=== PATIENT | male | born 1945 | race Caucasian/White ===

== ENCOUNTER → 2023-10-11 08:24 | Outpatient (REF) | payer MEDICARE, BC, SELFPAY | LOC: MRI 3T 08:24 | PROVIDERS: ATTENDING PHYSICIAN Psychiatry & Neurology Neurology; FAMILY PHYSICIAN Internal Medicine | DX: M54.12 Radiculopathy, cervical region (principal); M48.061 Spinal stenosis, lumbar region without neurogenic claudication | CPT/HCPCS: 72141; 72148 ==